=== PATIENT | female | born 1985 | race African-American/Black ===

== ENCOUNTER 2021-10-09 14:09 | Emergency (ER) | payer OTHER, SELFPAY ==
[2021-10-09] MEDS ORDERED: Ketorolac Tromethamine 30 MG/ML VIAL ONE (14:40)
[2021-10-09] MEDS ORDERED: HYDROcodone/Acetaminophen 5/325 mg Tablet ONE (14:40)
== END 2021-10-09 16:13 | disposition home or self-care (01) ==
LOC: CSHERS 14:09
DX: S50.12XA Contusion of left forearm, initial encounter (principal); G54.0 Brachial plexus disorders; M62.830 Muscle spasm of back; F17.200 Nicotine dependence, unspecified, uncomplicated; V43.52XA Car driver injured in collision with other type car in traffic accident, initial encounter; Y92.410 Unspecified street and highway as the place of occurrence of the external cause
CPT/HCPCS: 96372; J1885

== ENCOUNTER 2022-03-01 08:02 | Emergency (ER) | payer SELFPAY ==
[2022-03-01] MEDS ORDERED: Ondansetron ODT 4 MG TAB ONE (08:27)
[2022-03-01 09:16] LABS: Bilirubin Neg (Negative); Blood, Urine 10 (Negative); Clarity Clear (Clear); Glucose, Urine (Dipstick) Normal (Negative); Ketone, Urine 5 mg/dL (Negative); Leukocyte 100 (Negative); Nitrite Negative (Negative); Protein, Urine (Dipstick) 15 mg/dl (Neg-Trace); Specific Gravity, Urine 1.015 (1.005-1.030)
[2022-03-01 09:18] LABS: Pregnancy Test - Urine (BHCG) Negative (Negative); Pregu Control Background? CLEAR/WHITE (CLR/WHITE); Pregu Control Bar Appear? YES (CONTROL BAR); Specific Gravity 1.015 (1.002-1.036)
[2022-03-01 09:27] LABS: Bacteria/HPF Rare-Few HPF (None Seen); Mucous/LPF 2+ LPF (<2+)
[2022-03-01 09:40] LABS: SARS-CoV-2 NAA Rapid Test Not Detected (NotDetected)
[2022-03-01] MEDS ORDERED: Promethazine HCl 25 MG/ML VIAL ONE (10:10)
[2022-03-01] MEDS ORDERED: Ketorolac Tromethamine 30 MG/ML VIAL ONE (10:10)
== END 2022-03-01 11:43 | disposition home or self-care (01) ==
LOC: CSHERS 08:02
DX: B34.9 Viral infection, unspecified (principal); R11.2 Nausea with vomiting, unspecified; F17.200 Nicotine dependence, unspecified, uncomplicated; Z20.822 Contact with and (suspected) exposure to COVID-19
CPT/HCPCS: 81003; 81015; 81025; 96372; 99284; J1885; J2550; Q0162